=== PATIENT | female | born 1955 | race Caucasian/White ===

== ENCOUNTER 2018-08-20 16:40 | Emergency (ER) | payer OTHER ==
[~2018-08-20] VITALS: Ht 167.6 cm; Wt 57.6 kg
--- NOTE | 2018-08-20 16:47 | NUR ---
CHIDI, FROM HOME, HAD SYNCOPAL EPISODE, SMOKED WEED AND HAD 2 GLASS OF WINE. TO ER BED 1 , HOOKED TO MONITOR, CHANGED TO GOWN, PROVIDED W WARM BLANKET, AWAITING MD NORWOOD.
--- NOTE | 2018-08-20 17:00 | NUR ---
DR TOLBERT AT BEDSIDE
[2018-08-20 17:17] LABS: BASOPHILS # (AUTO) 0.1 /CMM (0.0-0.2); BASOPHILS % (AUTO) 0.7 % (0.0-2.0); EOSINOPHILS % (AUTO) 2.4 % (0.0-6.0); HEMATOCRIT 35 % (33-45); LYMPHOCYTES # (AUTO) 3.8 /CMM (0.8-4.8); LYMPHOCYTES % (AUTO) 40.2 % (20.0-44.0); MEAN CORPUSCULAR HGB CONC 34 g/dl (31.0-36.0); MEAN CORPUSCULAR VOLUME 99 fL (82-100); MONOCYTES # (AUTO) 0.6 /CMM (0.1-1.30); MONOCYTES % (AUTO) 6.3 % (2.0-12.0); NEUTROPHILS # (AUTO) 4.7 /CMM (1.8-8.9); NEUTROPHILS % (AUTO) 50.4 % (43.0-81.0); PLATELET COUNT (AUTO) 270 /CMM (150-450); RED BLOOD CELL COUNT(AUTO) 3.53 MIL/uL (4.0-5.2); WHITE BLOOD COUNT (AUTO) 9.4 K/uL (4.3-11.0)
--- NOTE | 2018-08-20 17:28 | NUR ---
PT WHEELED OUT VIA [employer] FOR CT SCAN.
[2018-08-20 17:30] LABS: CALCIUM, SERUM 7.9 mg/dL (8.5-10.1); CARBON DIOXIDE 26 mmol/L (21-32); CHLORIDE 102 mmol/L (98-107); CREATININE 0.7 mg/dL (0.6-1.3); GLUCOSE 101 mg/dL (74-106); POTASSIUM 3.4 mmol/L (3.5-5.1); SODIUM SERUM 136 mmol/L (136-145); UREA NITROGEN, BLOOD 15 mg/dL (7-18)
[2018-08-20] MEDS ORDERED: POTASSIUM CHLORIDE 20 MEQ TAB.PRT.SR PO ONE (19:24)
[2018-08-20] MEDS: POTASSIUM CHLORIDE 20 MEQ TAB.PRT.SR PO ONE (19:29)
--- NOTE | 2018-08-20 19:29 | NUR ---
[facility] WAS CALLED. [employer] AUTHORING SPECIALIST DR RAMON
--- NOTE | 2018-08-20 19:41 | NUR ---
REPORT GIVEN TO STEPHANIA BOX FOR [facility]IS[facility]
[2018-08-20 20:05] VITALS: BP 122/81
== END 2018-08-20 20:30 | disposition left against medical advice (07) ==
LOC: ER 16:45
DX: R55 Syncope and collapse (principal); E87.6 Hypokalemia; F19.10 Other psychoactive substance abuse, uncomplicated; F12.10 Cannabis abuse, uncomplicated; F10.10 Alcohol abuse, uncomplicated; Y90.9 Presence of alcohol in blood, level not specified
CPT/HCPCS: 36415; 70450-TC; 71045-TC; 80048-TC; 84484-TC; 85025-TC; 85730-TC; 87081-TC

== ENCOUNTER 2020-01-18 21:14 | Emergency (ER) | payer BC, OTHER ==
[~2020-01-18] VITALS: Ht 167.6 cm; Wt 53.5 kg
--- NOTE | 2020-01-18 21:14 | NUR ---
EDI ELAINE - FRIEND [phone]
--- NOTE | 2020-01-18 21:30 | NUR ---
BIB EMS FROM HOME C/O NEAR SYNCOPE S/P SMOKING MARIJUANA. (+) ORTHOSTATIC V/S. NS 400ML'S GIVEN BY EMS RECORDS MANAGEMENT SPECIALIST. BS-126. PT AAOX4, VSS. RR EVEN & UNLABORED. DENIES CP, SOB, DIZZINESS, N/V AT THIS TIME. PT SEEN & EVAL'D BY MARILUZ PABLO. WILL CONT TO MONITOR.
[2020-01-18 22:34] VITALS: BP 129/79
--- NOTE | 2020-01-18 22:34 | NUR ---
Patient discharged to home in stable condition. Written and verbal after care instructions given. Patient verbalizes understanding of instruction. IV removed. Catheter intact and site benign. Pressure and 4x4 applied to site. No bleeding noted.
== END 2020-01-18 22:35 | disposition home or self-care (01) ==
LOC: ER 21:17
DX: R55 Syncope and collapse (principal); F12.90 Cannabis use, unspecified, uncomplicated; F19.10 Other psychoactive substance abuse, uncomplicated